=== PATIENT | male | born 1970 | race Caucasian/White ===

== ENCOUNTER 2020-08-21 09:15 | Emergency (ER) | payer BC ==
[2020-08-21] MEDS ORDERED: Ondansetron 4 MG/2 ML SDV IV ONE (10:18)
[2020-08-21] MEDS ORDERED: Lactated Ringers 1,000 ML IV ONE ×2 (10:18→11:33)
[2020-08-21 10:23] LABS: ANION GAP 16.6 mEq/L (7-13); CHLORIDE,CL 101 mmol/L (98-107); SODIUM,NA 137 mmol/L (136-145)
--- NOTE | 2020-08-21 12:04 | EDM.PDOC ---
Scribed by Wendy Duval 08/21/20 1021 for Carolina Arreola NP ED HPI GENERAL MEDICAL PROBLEM - General Chief Complaint: General Stated Complaint: VOMITTING/DIARHEA/SOB Time Seen by Provider: 08/21/20 10:00 Source of Information: Reports: Patient, RN, RN Notes Reviewed History Limitations: Reports: No Limitations - History of Present Illness INITIAL COMMENTS - FREE TEXT/NARRATIVE: Patient is a 50-year-old male who presents to ER with complaints of nausea, vomiting and diarrhea since yesterday as well as shortness of breath. Patient states after he ate yesterday he had diarrhea, and has continued to have diarrhea. He admits to nausea and vomiting as well. States he became short of breath after these symptoms began. Denies fever or chills and denies chest pain s. History of atrial fibrillation with ablation. History of diabetes--insulin use. Denies ever having had COVID. States he has his second vaccination 1 month ago. He has been traveling from [place] to [place], to [place] to [place] visiting family. He also has complaint of some back pain. States he does have chronic back pain but since this episode began. Onset: Gradual Duration: Constant Location: Reports: Chest, Abdomen, Back Quality: Reports: Ache Severity: Severe Improves with: Reports: None Worsens with: Reports: None Associated Symptoms: Reports: No Other Symptoms - Related Data Allergies Allergy/AdvReac Type Severity Reaction Status Date / Time canagliflozin [From Invokana] Allergy Cannot Verified 08/21/20 09:40 Remember Home Meds: Home Meds Empagliflozin [Jardiance] 25 mg PO DAILY 08/21/20 [History] Fenofibrate 160 mg PO DAILY 08/21/20 [History] Fish Oil/[place]-3 Fatty Acids [Fish Oil 1,000 MG] 1,000 mg PO BID 08/21/20 [History] Insulin Aspart [NovoLOG] 76 units SUBCUT TID 08/21/20 [History] Losartan [Cozaar] 100 mg PO DAILY 08/21/20 [History] Rosuvastatin Calcium [Crestor] 40 mg PO DAILY 08/21/20 [History] Trujeo 70 unit SUBCUT DAILY 08/21/20 [History] carvediloL [Carvedilol] 12.5 mg PO BID 08/21/20 [History] metFORMIN [Glucophage XR] 500 mg PO BID 08/21/20 [History] Past Medical History Cardiovascular History: Reports: Afib, CAD, Other (See Below) Other Cardiovascular History: has blockages but no stents per Endocrine/Metabolic History: Reports: Diabetes, Type II - Past Surgical History Cardiovascular Surgical History: Reports: Cardiac Ablation Social & Family History - Tobacco Use Tobacco Use Status *Q: Never Tobacco User - Recreational Drug Use Recreational Drug Use: No ED ROS GENERAL - Review of Systems Review Of Systems: Comprehensive ROS is negative, except as noted in HPI. ED EXAM, GENERAL - Physical Exam Exam: See Below Exam Limited By: No Limitations General Appearance: Alert, WD/WN, Mild Distress Eye Exam: Bilateral Eye: EOMI, Normal Inspection, PERRL Ears: Normal External Exam, Normal Canal, Hearing Grossly Normal, Normal TMs Nose: Normal Inspection, Normal Mucosa, No Blood Throat/Mouth: Other (dry mucous membranes) Head: Atraumatic, Normocephalic Neck: Normal Inspection, Supple, Non-Tender, Full Range of Motion Respiratory/Chest: No Respiratory Distress, Lungs Clear, Normal Breath Sounds, No Accessory Muscle Use, Chest Non-Tender Cardiovascular: Normal Peripheral Pulses, Regular Rate, Rhythm, No Edema, No Gallop, No JVD, No Murmur, No Rub GI/Abdominal: Tender (generalized.), Other (positive bowel sounds) (Male) Exam: Deferred Rectal (Males) Exam: Deferred Back Exam: Normal Inspection, Full Range of Motion, NT Extremities: Normal Inspection, Normal Range of Motion, Non-Tender, Normal Capillary Refill, No Pedal Edema Neurological: Alert, Oriented, CN II-XII Intact, Normal Cognition, Normal Gait, Normal Reflexes, No Motor/Sensory Deficits Psychiatric: Normal Affect, Normal Mood Skin Exam: Warm, Dry, Intact, Normal Color, No Rash Lymphatic: No Adenopathy #1 Interpretation EKG Date: 08/21/20 Time: 09:53 Rhythm: Other (sinus rhythm) Rate (Beats/Min): 98 [place]: Normal P-Wave: Present QRS: Other (abnormal R wave progression) ST-T: Normal QT: Normal Comparison: NA - No Prior EKG Course - Vital Signs Last Recorded V/S: Last Vital Signs Temp 97.7 F 08/21/20 09:40 Pulse 106 H 08/21/20 09:40 Resp 16 08/21/20 09:40 BP 126/74 08/21/20 09:40 Pulse Ox 98 08/21/20 09:40 - Orders/Labs/Meds Labs: Laboratory Tests 08/21/20 08/21/20 08/21/20 Range/Units 09:21 09:51 09:51 WBC 8.8 (5.0-10.0) 10^3/uL RBC 5.35 (4.6-6.2) 10^6/uL Hgb 16.1 (14.0-18.0) g/dL Hct 46.9 (40.0-54.0) % MCV 87.7 (80-100) fL MCH 30.1 (27.0-34.0) pg MCHC 34.3 (33.0-35.0) g/dL Plt Count 183 (150-450) 10^3/uL Neut % (Auto) 92.4 H (42.2-75.2) % Lymph % (Auto) 3.9 L (20.5-50.1) % [place] % (Auto) 2.9 (2-8) % Eos % (Auto) 0.6 L (1.0-3.0) % Baso % (Auto) 0.2 (0.0-1.0) % PT 10.9 (9.0-12.0) SEC INR 1.1 (0.9-1.2) Sodium (136-145) mmol/L Potassium (3.5-5.1) mmol/L Chloride (98-107) mmol/L Carbon Dioxide (21-32) mmol/L Anion Gap (7-13) mEq/L BUN (7-18) mg/dL Creatinine (0.70-1.30) mg/dL Est Cr Clr Drug Dosing mL/min Estimated GFR (MDRD) BUN/Creatinine Ratio (No establ ref range) Glucose (70-99) mg/dL Calcium (8.5-10.1) mg/dL Magnesium (1.8-2.4) mg/dL Total Bilirubin (0.2-1.0) mg/dL AST (15-37) U/L ALT (16-63) U/L Alkaline Phosphatase (46-116) U/L Troponin I (0.000-0.056) ng/mL Total Protein (6.4-8.2) g/dL Albumin (3.4-5.0) g/dL Globulin Albumin/Globulin Ratio Amylase (25-115) U/L Lipase (73-393) U/L SARS-CoV-2 RNA (BRUNA) Negative (NEGATIVE) 08/21/20 Range/Units 09:51 WBC (5.0-10.0) 10^3/uL RBC (4.6-6.2) 10^6/uL Hgb (14.0-18.0) g/dL Hct (40.0-54.0) % MCV (80-100) fL MCH (27.0-34.0) pg MCHC (33.0-35.0) g/dL Plt Count (150-450) 10^3/uL Neut % (Auto) (42.2-75.2) % Lymph % (Auto) (20.5-50.1) % [place] % (Auto) (2-8) % Eos % (Auto) (1.0-3.0) % Baso % (Auto) (0.0-1.0) % PT (9.0-12.0) SEC INR (0.9-1.2) Sodium 137 (136-145) mmol/L Potassium 3.6 (3.5-5.1) mmol/L Chloride 101 (98-107) mmol/L Carbon Dioxide 23 (21-32) mmol/L Anion Gap 16.6 H (7-13) mEq/L BUN 17 (7-18) mg/dL Creatinine 0.90 (0.70-1.30) mg/dL Est Cr Clr Drug Dosing 112.90 mL/min Estimated GFR (MDRD) > 60 BUN/Creatinine Ratio 18.9 (No establ ref range) Glucose 210 H (70-99) mg/dL Calcium 8.2 L (8.5-10.1) mg/dL Magnesium 1.8 (1.8-2.4) mg/dL Total Bilirubin 1.1 H (0.2-1.0) mg/dL AST 15 (15-37) U/L ALT 30 (16-63) U/L Alkaline Phosphatase 39 L (46-116) U/L Troponin I < 0.017 (0.000-0.056) ng/mL Total Protein 6.8 (6.4-8.2) g/dL Albumin 3.8 (3.4-5.0) g/dL Globulin 3.0 Albumin/Globulin Ratio 1.3 Amylase 24 L (25-115) U/L Lipase 62 L (73-393) U/L SARS-CoV-2 RNA (BRUNA) (NEGATIVE) Meds: Medications Discontinued Medications Generic Name Dose Route Start Last Admin Trade Name Ethan PRN Reason Stop Dose Admin Lactated Ringer's 1,000 mls @ 999 mls/hr 08/21/20 10:18 08/21/20 10:25 Ringers, Lactated IV 08/21/20 11:18 999 mls/hr .BOLUS ONE Administration Lactated Ringer's 1,000 mls @ 999 mls/hr 08/21/20 11:33 08/21/20 11:34 Ringers, Lactated IV 08/21/20 12:33 999 mls/hr .BOLUS ONE Administration Ondansetron HCl 4 mg 08/21/20 10:18 08/21/20 10:25 Ondansetron 4 Mg/2 Ml Sdv IV 08/21/20 10:19 4 mg ONETIME ONE Administration - Re-Assessments/Exams Free Text/Narrative Re-Assessment/Exam: 08/21/20 12:00 Lab and diagnostic findings discussed with both the patient and his over the phone. It appears as of now this is a gastroenteritis. Patient will be discharged home to increase his fluid intake, take Imodium, and rest. Patient encouraged to return to the ER with any worsening of symptoms or no improvement. Patient and are agreeable with this plan. Departure - Departure Time of Disposition: 12:25 Disposition: Home, Self-Care 01 Condition: Fair Clinical Impression: Gastroenteritis Diarrhea Qualifiers: Diarrhea type: unspecified type Qualified Code(s): R19.7 - Diarrhea, unspecified - Discharge Information *PRESCRIPTION DRUG MONITORING PROGRAM REVIEWED*: No *COPY OF PRESCRIPTION DRUG MONITORING REPORT IN PATIENT JARROD: No Instructions: Food Choices to Help Relieve Diarrhea, Adult, Diarrhea, Adult, [id number] Referrals: PCP,Not In Area [Primary Care Provider] - Forms: ED Department Discharge Additional Instructions: Drink plenty of fluids May use loperamide [id number] as directed for diarrhea Return to the ER with any worsening of symptoms or no improvement Rest [place] diet Sepsis Event Note (ED) - Evaluation Sepsis Screening Result: No Definite Risk - Focused Exam Vital Signs: Vital Signs Temp Pulse Resp BP Pulse Ox 08/21/20 09:40 97.7 F 106 H 16 126/74 98 I have read and agree with the documentation that has been completed regarding this visit. By signing this record, I attest that the documentation was completed in my physical presence and is an accurate record of the encounter.
== END 2020-08-21 12:58 | disposition home or self-care (01) ==
LOC: DL.ED 09:15
DX: K52.9 Noninfective gastroenteritis and colitis, unspecified (principal); I25.10 Atherosclerotic heart disease of native coronary artery without angina pectoris; E11.9 Type 2 diabetes mellitus without complications; Z91.09 Other allergy status, other than to drugs and biological substances; Z79.4 Long term (current) use of insulin; Z79.899 Other long term (current) drug therapy
CPT/HCPCS: 36415; 80053; 82150; 83690; 83735; 84484; 85025; 85610; 87635; 93005; 96374; 99284; J2405; J7120; 93010; 99283; U0002